=== PATIENT | female | born 2000 | race Hispanic/Latino ===

== ENCOUNTER 2022-12-02 11:08 | Emergency (ER) | payer BC ==
[~2022-12-02] VITALS: Ht 160 cm; Wt 68.0 kg
[2022-12-02] MEDS ORDERED: DIPHTH/TETANUS/ACEL. PERTUSSIS 0.5 ML SYR IM ONE (12:15)
[2022-12-02] MEDS ORDERED: ONDANSETRON HCL 4 MG ORAL DISINTEGRATING TAB PO ONE (12:15)
[2022-12-02] MEDS ORDERED: ONDANSETRON HCL 4 MG ORAL DISINTEGRATING TAB ONE (12:19)
[2022-12-02] MEDS ORDERED: TETANUS/DIPHTHERIA TOX ADULT 0.5 ML SYR ONE (12:19)
[2022-12-02] MEDS ORDERED: AMOX TR-K CLV1 EAC2 PO (13:24)
== END 2022-12-02 13:53 | disposition home or self-care (01) ==
LOC: FSED 11:37
DX: S51.831A Puncture wound without foreign body of right forearm, initial encounter (principal); W54.0XXA Bitten by dog, initial encounter; Y92.89 Other specified places as the place of occurrence of the external cause
CPT/HCPCS: 81003; 90714; 99284